=== PATIENT | female | born 1960 | race Caucasian/White ===

== ENCOUNTER 2017-12-30 12:57 | Inpatient (IN) | payer OTHER ==
[~2017-12-30] VITALS: Ht 165.1 cm; Wt 128.1 kg
[2017-12-30] MEDS ORDERED: KETOROLAC TROMETH 60MG/2ML VIAL IM ONE (14:00)
[2017-12-30] MEDS ORDERED: HYDROcodone-ACET 10/325MG TAB PO ONE ×2 (14:00→21:45)
[2017-12-30] MEDS ORDERED: KETAMINE HCL 50 MG/ML 10ML VIAL IV ONE (14:30)
[2017-12-30] MEDS ORDERED: fentaNYL CITRATE 100 MCG/2 ML VL IV ONE ×2 (14:30→22:00)
[2017-12-30] MEDS ORDERED: MIDAZOLAM HCL 5 MG/ML-1ML VIAL ONE (14:33)
[2017-12-30] MEDS ORDERED: MIDAZOLAM HCL 5 MG/ML-1ML VIAL IV ONE (15:00)
[2017-12-30 19:27] LABS: Basophils # (auto) 0.1 uL; Basophils % (auto) 0.7 % (0.0-2.0); Eosinophils # (auto) 0 uL; Eosinophils % (auto) 0.1 % (0.0-7.0); Hematocrit 42.4 % (36.0-46.0); Hemoglobin 13.9 g/dL (12.2-16.2); Lymphocytes # (auto) 0.9 uL; Lymphocytes % (auto) 6.9 % (10.0-50.0); Mean Corpuscular Hemoglobin 30.5 pg (28.0-32.0); Mean Corpuscular Hgb Conc. 32.8 g/dL (32.0-36.0); Mean Corpuscular Volume 93.1 fL (80.0-100.0); Monocytes # (auto) 0.9 uL; Monocytes % (auto) 6.4 % (0.0-12.0); Neutrophils # (auto) 11.5 uL; Neutrophils % (auto) 85.9 % (37.0-80.0); Nucleated Red Blood Cells % 0.1 %; Platelet Count (auto) 228 10^3/uL (140-450); Red Blood Cells 4.56 10^6/uL (4.0-5.20); Red Cell Distribution Width 13.8 % (11.8-14.3); White Blood Cell 13.3 10^3/uL (4.4-10.8)
[2017-12-30 19:46] LABS: Alanine Aminotransferase 24 U/L (13-56); Albumin 3.4 g/dL (3.4-5.0); Alkaline Phosphatase 86 U/L (45-117); Anion Gap 9 (5-15); Aspartate Aminotransferase 15 U/L (15-37); BUN/Creatinine Ratio 14.6; Bilirubin, Total 0.3 mg/dL (0.2-1.0); Blood Urea Nitrogen 26 mg/dL (7-18); Calcium 8.2 mg/dL (8.5-10.1); Carbon Dioxide 19 mmol/L (21-32); Chloride 114 mmol/L (98-107); GFR African American 38 mL/min; GFR Non-African American 31 mL/min; Glucose 115 mg/dL (74-106); Magnesium 2.5 mg/dL (1.6-2.6); Potassium 4.7 mmol/L (3.5-5.1); Sodium 142 mmol/L (136-145); Total Protein 6.9 g/dL (6.4-8.2)
[2017-12-30] MEDS ORDERED: ceFAZolin 1GM/50ML 50 ML IV ONE (20:03)
[2017-12-30] MEDS ORDERED: MIDAZOLAM HCL 1MG/1ML-2 ML VIAL ONE (20:17)
[2017-12-30] MEDS ORDERED: fentaNYL CITRATE 100 MCG/2 ML VL ONE (20:17)
[2017-12-30] MEDS ORDERED: SUCCINYLCHOLINE CHLORIDE 20 MG/ML 10ML VIAL IV ONE (20:19)
[2017-12-30] MEDS ORDERED: PROPOFOL 10 MG/ML 20 ML IV ONE (20:23)
[2017-12-30] MEDS ORDERED: ROCURONIUM 10MG/ML 10ML VIAL IV ONE (20:23)
[2017-12-30 20:49] LABS: INR 0.93 (0.9-1.15); Prothrombin Time 10.1 sec (9.37-12.3)
[2017-12-30] MEDS ORDERED: hydrALAZINE HCL 20 MG/ML VL IV PRN (21:45)
[2017-12-30] MEDS ORDERED: ONDANSETRON HCL 4 MG/2 ML VIAL IV ONE (21:45)
[2017-12-30] MEDS ORDERED: ONDANSETRON HCL 4 MG/2 ML VIAL IV PRN (22:30)
[2017-12-30] MEDS: MORPHINE SULFATE 4 MG/ML SYR/VIAL IV PRN (22:50)
[2017-12-30 23:00] VITALS: BP 125/70
[2017-12-30 23:15] VITALS: BP 120/73
[2017-12-30 23:30] VITALS: BP 144/58
[2017-12-30 23:44] LABS: Urine Bacteria FEW /hpf (None Seen); Urine Blood Negative /uL (Negative); Urine Hyaline Cast FEW /lpf (0 - 2); Urine Mucus FEW (None Seen); Urine WBC 200 /hpf (0 - 5)
[2017-12-30 23:45] VITALS: BP 122/59
[2017-12-31] VITALS (11 sets, daily range): BP systolic 104–139; BP diastolic 58–77
[2017-12-31] MEDS: ePHEDrine SULFATE 50 MG/ML AMP IV PRN ×2 (01:30→01:31)
[2017-12-31] MEDS ORDERED: HYDR25TA35 PO (06:34)
[2017-12-31] MEDS ORDERED: METO-158 PO (06:34)
[2017-12-31] MEDS ORDERED: SIMV10TA84 PO (06:34)
[2017-12-31] MEDS: MORPHINE SULFATE 4 MG/ML SYR/VIAL IV PRN ×2 (09:00→23:15)
[2017-12-31] MEDS ORDERED: ONDANSETRON HCL 4 MG/2 ML VIAL IV PRN (11:00)
[2017-12-31] MEDS ORDERED: hydrALAZINE HCL 20 MG/ML VL IV PRN (11:00)
[2017-12-31] MEDS: SODIUM CHLORIDE 0.9% 1,000 ML IV SCH (12:12)
[2017-12-31] MEDS: HYDROcodone-ACET 10/325MG TAB PO PRN ×3 (12:13→20:29)
[2017-12-31] MEDS ORDERED: HYDR-4072 PO (18:10)
[2018-01-01] MEDS: SODIUM CHLORIDE 0.9% 1,000 ML IV SCH (00:20)
[2018-01-01] MEDS: MORPHINE SULFATE 4 MG/ML SYR/VIAL IV PRN (03:05)
[2018-01-01] MEDS: HYDROcodone-ACET 10/325MG TAB PO PRN ×2 (04:08→09:01)
[2018-01-01 05:34] VITALS: BP 162/66
[2018-01-01 05:35] LABS: Basophils # (auto) 0.1 uL; Eosinophils # (auto) 0.2 uL; Eosinophils % (auto) 2.2 % (0.0-7.0); Hematocrit 37.6 % (36.0-46.0); Hemoglobin 12.2 g/dL (12.2-16.2); Lymphocytes # (auto) 1.3 uL; Lymphocytes % (auto) 14.1 % (10.0-50.0); Mean Corpuscular Hemoglobin 31.4 pg (28.0-32.0); Mean Corpuscular Hgb Conc. 32.6 g/dL (32.0-36.0); Mean Corpuscular Volume 96.3 fL (80.0-100.0); Monocytes # (auto) 1.1 uL; Monocytes % (auto) 12.2 % (0.0-12.0); Neutrophils # (auto) 6.6 uL; Neutrophils % (auto) 70.5 % (37.0-80.0); Platelet Count (auto) 180 10^3/uL (140-450); Red Cell Distribution Width 14.3 % (11.8-14.3); White Blood Cell 9.4 10^3/uL (4.4-10.8)
[2018-01-01 06:09] LABS: Albumin 2.8 g/dL (3.4-5.0); Bilirubin, Total 0.3 mg/dL (0.2-1.0); Calcium 7.7 mg/dL (8.5-10.1); Potassium 4.4 mmol/L (3.5-5.1); Total Protein 6.3 g/dL (6.4-8.2)
[2018-01-01 06:25] VITALS: BP 117/77
[2018-01-01 09:00] VITALS: BP 137/71
== END 2018-01-01 10:10 | disposition home health service (06) | DRG 563 ==
LOC: ER 12:57 → OVERFLOW 12:58 → WEST WING 22:43
PROVIDERS: ADMIT Internal Medicine; ATTEND Hospitalist
PROC: 0R9L3ZZ Drainage of Right Elbow Joint, Percutaneous Approach (ICD-10-PCS; 2017-12-30)
PROC: BW1J1ZZ Fluoroscopy of Upper Extremity using Low Osmolar Contrast (ICD-10-PCS; 2017-12-30)
PROC: 0RSLXZZ Reposition Right Elbow Joint, External Approach (ICD-10-PCS; principal; 2017-12-30 20:31)
DX: S52.121A Displaced fracture of head of right radius, initial encounter for closed fracture (principal); N17.9 Acute kidney failure, unspecified; N18.3 Chronic kidney disease, stage 3 (moderate); Z68.42 Body mass index [BMI] 45.0-49.9, adult; S42.131A Displaced fracture of coracoid process, right shoulder, initial encounter for closed fracture; E66.01 Morbid (severe) obesity due to excess calories; W18.39XA Other fall on same level, initial encounter; S53.431A Radial collateral ligament sprain of right elbow, initial encounter; S53.441A Ulnar collateral ligament sprain of right elbow, initial encounter; S54.01XA Injury of ulnar nerve at forearm level, right arm, initial encounter; I12.9 Hypertensive chronic kidney disease with stage 1 through stage 4 chronic kidney disease, or unspecified chronic kidney disease; Z85.3 Personal history of malignant neoplasm of breast; Y93.89 Activity, other specified; Y92.89 Other specified places as the place of occurrence of the external cause; Y99.8 Other external cause status
CPT/HCPCS: 36415; 71045; 73070; 73080; 73200; 76000; 80053; 81001; 83735; 84484; 85025; 85610; 85730; 86850; 86900; 86901; 93005; 96372; 96374; J0330; J0690; J1885; J2250; J2405; J2704

== ENCOUNTER → 2023-07-30 | Outpatient (CLI) | payer BC ==
[~2023-07-30] MED LIST: HYDR-4072 PO; HYDR-4296 PO; METO-158 PO; SIMV10TA20 PO
[2023-07-30 14:01] LABS: Basophils # (auto) 0 10 ^3/uL (0-0.2); Basophils % (auto) 1.3 % (0.0-2.0); Eosinophils # (auto) 0 10 ^3/uL (0-0.8); Hematocrit 33.1 % (36.0-46.0); Hemoglobin 11.2 g/dL (12.2-16.2); Lymphocytes # (auto) 0.6 10 ^3/uL (0.4-5.4); Lymphocytes % (auto) 16.8 % (10.0-50.0); Mean Corpuscular Hemoglobin 38.3 pg (28.0-32.0); Mean Corpuscular Hgb Conc. 33.8 g/dL (32.0-36.0); Mean Corpuscular Volume 113.3 fL (80.0-100.0); Monocytes # (auto) 0.4 10 ^3/uL (0-1.3); Monocytes % (auto) 12.1 % (0.0-12.0); Neutrophils # (auto) 2.5 10 ^3/uL (1.6-8.6); Neutrophils % (auto) 68.8 % (37.0-80.0); Nucleated Red Blood Cells % 0.1 %; Red Blood Cells 2.92 10^6/uL (4.0-5.20); Red Cell Distribution Width 15.7 % (11.8-14.3); White Blood Cell 3.6 10^3/uL (4.4-10.8)
[2023-07-30 14:28] LABS: Alkaline Phosphatase 78 U/L (46-116); Triglycerides 276 mg/dL (< 150)
[2023-07-30 14:29] LABS: Alanine Aminotransferase 56 U/L (7-40); Albumin 4.3 g/dL (3.2-4.8); Anion Gap 9 (5-15); Aspartate Aminotransferase 58 U/L (13-40); BUN/Creatinine Ratio 13.4 (10.0-20.0); Bilirubin, Total 0.5 mg/dL (0.2-1.0); Blood Urea Nitrogen 25 mg/dL (9-23); Calcium 9.9 mg/dL (8.5-10.1); Carbon Dioxide 23 mmol/L (20-30); Chloride 113 mmol/L (98-107); Cholesterol 149 mg/dL (< 200); Glucose 134 mg/dL (74-106); HDL Cholesterol 38 mg/dL (40-59); LDL Cholesterol 75 mg/dL (< 100); Potassium 4.1 mmol/L (3.5-5.1); Sodium 145 mmol/L (136-145); Total Protein 7.2 g/dL (5.7-8.2)
[2023-07-31 21:06] LABS: Chlamydia Trachomatis, NAA Negative (Negative); Neisseria gonorrhoeae, NAA Negative (Negative)
== END | disposition home or self-care (01) ==
LOC: LAB 13:32
PROVIDERS: ATTEND Student in an Organized Health Care Education/Training Program
DX: C79.9 Secondary malignant neoplasm of unspecified site (principal); I10 Essential (primary) hypertension; E66.01 Morbid (severe) obesity due to excess calories; E78.5 Hyperlipidemia, unspecified; E03.9 Hypothyroidism, unspecified
CPT/HCPCS: 36415; 80053; 80061; 84443; 85025; 86703

== ENCOUNTER → 2024-04-07 | Outpatient (CLI) | payer BC ==
[~2024-04-07] MED LIST changes: -HYDR-4296 PO; +HYDR25TA88 PO
[2024-04-07 12:00] LABS: Alanine Aminotransferase 53 U/L (7-40); Alkaline Phosphatase 120 U/L (46-116); Anion Gap 8 (5-15); BUN/Creatinine Ratio 15.3 (10.0-20.0); Basophils # (auto) 0 10 ^3/uL (0-0.2); Blood Urea Nitrogen 31 mg/dL (9-23); Calcium 9.9 mg/dL (8.5-10.1); Carbon Dioxide 20 mmol/L (20-30); Chloride 114 mmol/L (98-107); Eosinophils # (auto) 0.1 10 ^3/uL (0-0.8); Glucose 126 mg/dL (74-106); LDL Cholesterol 84 mg/dL (< 100); Lymphocytes # (auto) 0.6 10 ^3/uL (0.4-5.4); Mean Corpuscular Hgb Conc. 34.2 g/dL (32.0-36.0); Monocytes # (auto) 0.4 10 ^3/uL (0-1.3); Nucleated Red Blood Cells % 0.1 %; Potassium 4.5 mmol/L (3.5-5.1); Sodium 142 mmol/L (136-145); Triglycerides 215 mg/dL (< 150)
[2024-04-07 12:01] LABS: Albumin 4.2 g/dL (3.2-4.8); Aspartate Aminotransferase 45 U/L (13-40); Bilirubin, Total 0.4 mg/dL (0.2-1.0); Cholesterol 152 mg/dL (< 200); HDL Cholesterol 39 mg/dL (40-59); Total Protein 6.9 g/dL (5.7-8.2)
[2024-04-07 12:04] LABS: Basophils % (auto) 1.4 % (0.0-2.0); Lymphocytes % (auto) 19.6 % (10.0-50.0); Mean Corpuscular Volume 113.8 fL (80.0-100.0); Monocytes % (auto) 12.5 % (0.0-12.0); Neutrophils % (auto) 64.5 % (37.0-80.0); Red Blood Cells 3.08 10^6/uL (4.0-5.20); Red Cell Distribution Width 15.1 % (11.8-14.3)
== END | disposition home or self-care (01) ==
LOC: LAB 10:59
PROVIDERS: ATTEND Student in an Organized Health Care Education/Training Program
DX: E78.49 Other hyperlipidemia (principal); E66.1 Drug-induced obesity
CPT/HCPCS: 36415; 80053; 80061; 85025

== ENCOUNTER → 2025-01-06 | Outpatient (CLI) | payer BC ==
[2025-01-06 10:28] LABS: Urine Bacteria None Seen /hpf (None Seen)
[2025-01-06 10:34] LABS: Basophils # (auto) 0 10 ^3/uL (0-0.2); Basophils % (auto) 1.7 % (0.0-2.0); Eosinophils # (auto) 0.1 10 ^3/uL (0-0.8); Eosinophils % (auto) 2.1 % (0.0-7.0); Hematocrit 36.8 % (36.0-46.0); Hemoglobin 12.6 g/dL (12.2-16.2); Lymphocytes # (auto) 0.6 10 ^3/uL (0.4-5.4); Mean Corpuscular Hemoglobin 39.1 pg (28.0-32.0); Mean Corpuscular Hgb Conc. 34.2 g/dL (32.0-36.0); Mean Corpuscular Volume 114.2 fL (80.0-100.0); Monocytes # (auto) 0.3 10 ^3/uL (0-1.3); Monocytes % (auto) 9.4 % (0.0-12.0); Neutrophils # (auto) 1.9 10 ^3/uL (1.6-8.6); Neutrophils % (auto) 64.8 % (37.0-80.0); Platelet Count (auto) 160 10^3/uL (140-450); Red Blood Cells 3.23 10^6/uL (4.0-5.20); Red Cell Distribution Width 15.1 % (11.8-14.3); White Blood Cell 2.9 10^3/uL (4.4-10.8)
[2025-01-06 10:35] LABS: Platelet Estimate Adequate
[2025-01-06 10:36] LABS: Macrocytosis Marked
[2025-01-06 10:50] LABS: Urine Blood Negative /uL (Negative); Urine Clarity Clear (Clear); Urine Color Light-Yellow (Yellow); Urine Protein, UAD Negative (Negative); Urine Squamous Epithelial Cell None Seen /hpf (<5); Urine Urobilinogen Normal (Negative); Urine WBC 1 /HPF (0-5); Urine pH 5.5 (5.0-9.0)
[2025-01-06 11:07] LABS: Albumin 4.4 g/dL (3.2-4.8); Anion Gap 13 (5-15); BUN/Creatinine Ratio 11.9 (10.0-20.0); Calcium 9.9 mg/dL (8.7-10.4); Carbon Dioxide 22 mmol/L (20-31); Sodium 143 mmol/L (136-145); Total Protein 7.5 g/dL (5.7-8.2)
[2025-01-06 11:08] LABS: Bilirubin, Total 0.9 mg/dL (0.2-1.0)
[2025-01-06 11:09] LABS: Alanine Aminotransferase 60 U/L (7-40); Alkaline Phosphatase 147 U/L (46-116); Aspartate Aminotransferase 57 U/L (13-40); Blood Urea Nitrogen 25 mg/dL (9-23); Chloride 108 mmol/L (98-107); Cholesterol 287 mg/dL (< 200); Glucose 166 mg/dL (74-106); HDL Cholesterol 39 mg/dL (40-59); LDL Cholesterol 192 mg/dL (< 100); Triglycerides 325 mg/dL (< 150)
== END | disposition home or self-care (01) ==
LOC: LAB 10:13
PROVIDERS: ATTEND Nurse Practitioner
DX: C79.9 Secondary malignant neoplasm of unspecified site (principal); I10 Essential (primary) hypertension; E78.5 Hyperlipidemia, unspecified; E03.9 Hypothyroidism, unspecified; R73.9 Hyperglycemia, unspecified; E66.01 Morbid (severe) obesity due to excess calories; Z83.3 Family history of diabetes mellitus
CPT/HCPCS: 36415; 80053; 80061; 81001; 83036; 84443; 85025

== ENCOUNTER → 2025-04-21 | Outpatient (CLI) | payer BC ==
[2025-04-21 10:56] LABS: Albumin 4.0 g/dL (3.2-4.8); Anion Gap 9 (5-15); BUN/Creatinine Ratio 13.3 (10.0-20.0); Calcium 10.0 mg/dL (8.7-10.4); Carbon Dioxide 24 mmol/L (20-31); Potassium 4.8 mmol/L (3.5-5.1); Sodium 143 mmol/L (136-145); Total Protein 6.7 g/dL (5.7-8.2)
[2025-04-21 10:57] LABS: Bilirubin, Total 0.6 mg/dL (0.2-1.0)
[2025-04-21 10:58] LABS: Alanine Aminotransferase 51 U/L (7-40); Alkaline Phosphatase 158 U/L (46-116); Blood Urea Nitrogen 24 mg/dL (9-23); Chloride 110 mmol/L (98-107); Cholesterol 257 mg/dL (< 200); Glucose 169 mg/dL (74-106); HDL Cholesterol 36 mg/dL (40-59); Triglycerides 301 mg/dL (< 150)
== END | disposition home or self-care (01) ==
LOC: LAB 09:58
PROVIDERS: ATTEND Nurse Practitioner
DX: E03.9 Hypothyroidism, unspecified (principal); E78.5 Hyperlipidemia, unspecified
CPT/HCPCS: 36415; 80053; 80061; 84443